=== PATIENT | male | born 1975 | race Caucasian/White ===

== ENCOUNTER 2017-02-09 09:23 | Emergency (ER) | payer OTHER ==
[~2017-02-09] VITALS: Ht 175.3 cm; Wt 119.3 kg
[2017-02-09] MEDS ORDERED: ALPR0.25 PO (09:36)
--- NOTE | 2017-02-09 09:43 | EKG ---
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
[2017-02-09] MEDS ORDERED: ASPIRIN 325 MG TABLET PO ONE (09:45)
[2017-02-09] MEDS ORDERED: LIDO:MAALOX:DONNATAL 1:1:1 15 ML SINGLE DOSE SWSW ONE (09:45)
[2017-02-09 09:49] LABS: BASO # 0.1 x10^3/uL (0.0-0.2); BASO % 1 % (0-3); EOS % 2 % (0-3); HEMATOCRIT 47.8 % (39.0-53.0); HEMOGLOBIN 16.4 g/dL (13.0-17.5); LYMPH # 2.7 x10^3/uL (1.0-4.8); LYMPH % 35 % (24-48); MEAN CORPUSCULAR HEMOGLOBIN 31 pg (25-35); MEAN CORPUSCULAR HGB CONC 34 g/dL (31-37); MEAN CORPUSCULAR VOLUME 91 fL (79-100); MONO % 8 % (0-9); NEUT % 55 % (31-73); PLATELET COUNT 164 x10^3/uL (140-400); RED BLOOD COUNT 5.24 x10^6/uL (4.30-5.70); RED CELL DISTRIBUTION WIDTH 14.3 % (11.5-14.5); WHITE BLOOD COUNT 7.9 x10^3/uL (4.0-11.0)
--- NOTE | 2017-02-09 09:54 | PHYS DOC ---
Past Medical History Past Medical History: Other Additional Past Medical Histor: tick bite causing alpha gal Past Surgical History: Other Additional Past Surgical Histo: left knee arthroscopy Additional Information: 1 ppd Alcohol Use: None Drug Use: Marijuana Adult General Chief Complaint Chief Complaint: CHEST PAIN [facility] HPI Patient is a 41 year old male who presents with 3 days of intermittent right arm pain with numbness in right hand. He went to his PCP to discuss this and then was asked about associated symptoms and then sent here for eval. States he has some minimal central chest pain associated with mild nausea and mild dyspnea. States right arm numbness/pain is independent of chest symptoms. States symptoms are constant with intermittent fluctuation. Chest symptoms occur at rest, worse at night. Arm symptoms worse at work. Denies exertional symptoms. He denies current dyspnea or nausea. Denies cough, leg pain or swelling, abdominal pain, f/c, diaphoresis, orthopnea. Review of Systems Review of Systems Constitutional: Denies fever or chills [] Eyes: Denies change in visual acuity, redness, or eye pain [] HENT: Denies nasal congestion or sore throat [] Respiratory: Denies cough or shortness of breath [] Cardiovascular: No additional information not addressed in HPI [] GI: Denies abdominal pain, nausea, vomiting, bloody stools or diarrhea [] : Denies dysuria or hematuria [] Musculoskeletal: Denies back pain or joint pain [] Integument: Denies rash or skin lesions [] Neurologic: Denies headache, focal weakness or sensory changes [] Endocrine: Denies polyuria or polydipsia [] Current Medications Current Medications Current Medications Medications (Trade) Dose Ordered Sig/Flory Start Time Stop Time Status Last Admin Dose Admin Aspirin (Yisel Aspirin) 325 mg 1X ONCE 02/09/17 09:45 02/09/17 09:46 DC 02/09/17 09:45 325 MG Multi-Ingredient Mouthwash/Gargle (Gi Cocktail Single Dose) 15 ml 1X ONCE 02/09/17 09:45 02/09/17 09:46 DC 02/09/17 09:45 15 ML Allergies Allergies Allergies Coded Allergies Type Severity Reaction Last Updated Verified Horse/Equine Containing Products Allergy Severe ENTERED BY PHARMACY FOR REPORTED PT ALLERGY "ALPHA-GAL" 02/09/17 No pork derived (porcine) Allergy Severe ENTERED BY PHARMACY FOR REPORTED PT ALLERGY "ALPHA-GAL" 02/09/17 No Uncoded Allergies Type Severity Reaction Last Updated Verified mammal meat Allergy Unknown pt has alpha gal from tick bite 02/09/17 Physical Exam Physical Exam Constitutional: Well developed, well nourished, no acute distress, non-toxic appearance. [] HENT: Normocephalic, atraumatic, bilateral external ears normal, oropharynx moist, nose normal. [] Eyes: PERRLA, EOMI. [] Neck: Normal range of motion, supple. [] Cardiovascular:Heart rate regular rhythm [] Lungs & Thorax: Bilateral breath sounds clear to auscultation [] Abdomen: Bowel sounds normal, soft, no tenderness. [] Skin: Warm, dry, no erythema, no rash. [] Back: Normal ROM. [] Extremities: No tenderness, ROM intact, no edema, equal radial pulses. Subjective decreased sensation to light touch in right glove distribution, normal strength at all joints [] Neurologic: Alert and oriented X 3, normal motor function, normal sensory function, no focal deficits noted. [] Psychologic: Affect normal, judgement normal, mood normal. [] Current Patient Data Vital Signs Vital Signs Date Time Temp Pulse Resp B/P Pulse Ox O2 Delivery O2 Flow Rate FiO2 02/09/17 10:34 78 18 152/71 98 Room Air 02/09/17 09:28 98.3 98.3 Lab Values Laboratory Tests Test 02/09/17 09:25 White Blood Count 7.9x10^3/uL (4.0-11.0) Red Blood Count 5.24x10^6/uL (4.30-5.70) Hemoglobin 16.4g/dL (13.0-17.5) Hematocrit 47.8% (39.0-53.0) Mean Corpuscular Volume 91fL (79-100) Mean Corpuscular Hemoglobin 31pg (25-35) Mean Corpuscular Hemoglobin Concent 34g/dL (31-37) Red Cell Distribution Width 14.3% (11.5-14.5) Platelet Count 164x10^3/uL (140-400) Neutrophils (%) (Auto) 55% (31-73) Lymphocytes (%) (Auto) 35% (24-48) Monocytes (%) (Auto) 8% (0-9) Eosinophils (%) (Auto) 2% (0-3) Basophils (%) (Auto) 1% (0-3) Neutrophils # (Auto) 4.3x10^3uL (1.8-7.7) Lymphocytes # (Auto) 2.7x10^3/uL (1.0-4.8) Monocytes # (Auto) 0.6x10^3/uL (0.0-1.1) Eosinophils # (Auto) 0.2x10^3/uL (0.0-0.7) Basophils # (Auto) 0.1x10^3/uL (0.0-0.2) Sodium Level 143mmol/L (136-145) Potassium Level 4.0mmol/L (3.5-5.1) Chloride Level 106mmol/L (98-107) Carbon Dioxide Level 29mmol/L (21-32) Anion Gap 8 (6-14) Blood Urea Nitrogen 11mg/dL (8-26) Creatinine 0.9mg/dL (0.7-1.3) Estimated GFR (Cockcroft-Gault) 93.9 Glucose Level 112mg/dL (70-99) H Calcium Level 9.5mg/dL (8.5-10.1) Troponin I Quantitative < 0.017ng/mL (0.000-0.055) Laboratory Tests 02/09/17 09:25 Laboratory Tests 02/09/17 09:25 EKG EKG EKG as interpreted by me as normal sinus rhythm, rate 85, no ST-T changes, normal intervals, no ectopy Radiology/Procedures Radiology/Procedures Chest xray as interpreted by me with no acute cardiopulmonary disease process Course & Med Decision Making Course & Med Decision Making Pertinent Labs and Imaging studies reviewed. (See chart for details) Workup is unremarkable. Will start on famotidine for possible GI source of pain. Discussed arm symptoms concerning for radicular symptoms. Symptomatic care discussed. Return precautions given. He understands and agrees with plan. Franca Disclaimer Franca Disclaimer This electronic medical record was generated, in whole or in part, using a voice recognition dictation system. Departure Departure Impression: Primary Impression: Chest pain Additional Impression: Numbness of right hand Disposition: 01 HOME, SELF-CARE Condition: STABLE Patient Instructions: Chest Pain (Nonspecific), [id number] Additional Instructions: Take famotidine for possible acid reflux. Follow-up with your primary care doctor within one week. Return for any concerns. Scripts Famotidine 20 Mg [id number] Mg PO BID #30 TAB Prov:Danny CHEN MD 02/09/17 Problem Qualifiers Primary Impression: Chest pain Chest pain type: unspecified Qualified Code: R07.9 - Chest pain, unspecified Danny CHEN MD Feb 09, 2017 09:54
[2017-02-09 10:00] LABS: CALCIUM 9.5 mg/dL (8.5-10.1); CREATININE 0.9 mg/dL (0.7-1.3); GFR 93.9
--- NOTE | 2017-02-09 10:03 | RAD ---
EXAM: Chest, 2 views. HISTORY: Chest pain. COMPARISON: None. FINDINGS: Frontal and lateral views of the chest are obtained. There is no infiltrate, effusion or pneumothorax. The heart is normal in size. IMPRESSION: No acute pulmonary finding.
[2017-02-09 10:34] VITALS: BP 152/71
[2017-02-09] MEDS ORDERED: FAMO20TA5 PO (10:36)
== END 2017-02-09 10:51 | disposition home or self-care (01) ==
LOC: ER 09:23
DX: R07.89 Other chest pain (principal); R20.0 Anesthesia of skin; R11.0 Nausea; R06.00 Dyspnea, unspecified; F12.10 Cannabis abuse, uncomplicated; F17.200 Nicotine dependence, unspecified, uncomplicated
CPT/HCPCS: 36415; 71020; 80048; 84484; 85027; 93005; 99285-25

== ENCOUNTER 2020-10-25 18:10 | Emergency (ER) | payer OTHER ==
[~2020-10-25] VITALS: Ht 175.3 cm; Wt 129.0 kg
[~2020-10-25 18:10] MED LIST: ALPR0.25 PO; AMOX1TAB61 PO; FAMO20TA5 PO; HYDR-3164 PO
--- NOTE | 2020-10-25 18:14 | PHYS DOC ---
Past Medical History Past Medical History: Anxiety, Hypertension, Other Additional Past Medical Histor: tick bite causing alpha gal Past Surgical History: Other Additional Past Surgical Histo: left knee arthroscopy, hernia Smoking Status: Current Every Day Smoker Alcohol Use: Occasionally Drug Use: Marijuana General Adult EDM: Chief Complaint: CHEST PAIN HPI: HPI: Patient is a 44 year old male presenting for chest pain. Patient reports being seen at [facility] greater than 1 week ago and given high blood pressure readings in outpatient setting was started on 20 mg lisinopril daily. He has been taking this faithfully but reports approximately 1 week ago without any known inciting event and/or trauma, patient started developing substernal chest pain which radiated into his left shoulder. These episodes occur daily and last hours at a time. He has been taking Xanax which is prescribed for his anxiety which seem to help, nothing known makes worse. Patient reports following up in outpatient setting with his primary care provider via Zoom. He discussed his symptoms with provider today who is concerned and recommended patient come to our facility for evaluation. He uses tobacco, has no prior provocative cardiac work-up, does have family history of MIs less than 50 years old. Review of Systems: Review of Systems: Fourteen body systems of review of systems have been reviewed. See HPI for pertinent positives and negative responses, other ely all other systems are negative, non-pertinent or non-contributory Heart Score: HEART Score for Chest Pain: HEART Score for Chest Pain Response (Comments) Value History Slighlty/Non-Suspicious 0 ECG Normal 0 Age < 45 0 Risk Factors >3 Risk Factors or Hx CAD 2 Troponin < Normal Limit 0 Total 2 Risk Factors: Risk Factors: DM, Current or recent (<one month) smoker, HTN, HLP, family history of CAD, obesity. Risk Scores: Score 0 - 3: 2.5% MACE over next 6 weeks - Discharge Home Score 4 - 6: 20.3% MACE over next 6 weeks - Admit for Clinical Observation Score 7 - 10: 72.7% MACE over next 6 weeks - Early Invasive Strategies Allergies: Allergies: Allergies Coded Allergies Type Severity Reaction Last Updated Verified Horse/Equine Containing Products Allergy Severe ENTERED BY PHARMACY FOR REPORTED PT ALLERGY "ALPHA-GAL" 02/09/17 No pork derived (porcine) Allergy Severe ENTERED BY PHARMACY FOR REPORTED PT ALLERGY "ALPHA-GAL" 02/09/17 No Uncoded Allergies Type Severity Reaction Last Updated Verified mammal meat Allergy Unknown pt has alpha gal from tick bite 02/09/17 Physical Exam: PE: Constitutional: Well developed, well nourished, no acute distress, non-toxic appearance. HENT: Normocephalic, atraumatic, bilateral external ears normal, oropharynx moist, no oral exudates, nose normal. Eyes: PERRLA, EOMI, conjunctiva normal, no discharge. Neck: Normal range of motion, no tenderness, supple, no stridor. Cardiovascular: Heart rate regular, sinus rhythm, no murmurs rubs or gallops Lungs & Thorax: Bilateral breath sounds clear to auscultation Abdomen: Bowel sounds normal, soft, no tenderness, no masses, no pulsatile masses. Nonsurgical abdomen, no peritoneal signs Skin: Warm, dry, no erythema, no rash. Back: No tenderness, no CVA tenderness. Extremities: No tenderness, no cyanosis, no clubbing, ROM intact, no edema. Neurologic: Alert and oriented X 3, grossly normal motor & sensory function, no focal deficits noted. Psychologic: Affect normal, judgement normal, mood normal. Current Patient Data: Labs: Laboratory Tests Test 10/25/20 18:25 White Blood Count 8.0 x10^3/uL Red Blood Count 4.88 x10^6/uL Hemoglobin 15.2 g/dL Hematocrit 44.5 % Mean Corpuscular Volume 91 fL Mean Corpuscular Hemoglobin 31 pg Mean Corpuscular Hemoglobin Concent 34 g/dL Red Cell Distribution Width 14.1 % Platelet Count 175 x10^3/uL Neutrophils (%) (Auto) 54 % Lymphocytes (%) (Auto) 35 % Monocytes (%) (Auto) 9 % Eosinophils (%) (Auto) 2 % Basophils (%) (Auto) 1 % Neutrophils # (Auto) 4.3 x10^3/uL Lymphocytes # (Auto) 2.8 x10^3/uL Monocytes # (Auto) 0.7 x10^3/uL Eosinophils # (Auto) 0.1 x10^3/uL Basophils # (Auto) 0.1 x10^3/uL Sodium Level 140 mmol/L Potassium Level 4.4 mmol/L Chloride Level 103 mmol/L Carbon Dioxide Level 27 mmol/L Anion Gap 10 Blood Urea Nitrogen 8 mg/dL Creatinine 0.8 mg/dL Estimated GFR (Cockcroft-Gault) 106.0 BUN/Creatinine Ratio 10 Glucose Level 96 mg/dL Calcium Level 10.0 mg/dL Total Bilirubin 0.3 mg/dL Aspartate Amino Transf (AST/SGOT) 20 U/L Alanine Aminotransferase (ALT/SGPT) 45 U/L Alkaline Phosphatase 74 U/L Troponin I Quantitative < 0.017 ng/mL Total Protein 6.9 g/dL Albumin 4.2 g/dL Albumin/Globulin Ratio 1.6 Current Medications Medications (Trade) Dose Ordered Sig/Flory Route PRN Reason Start Time Stop Time Status Last Admin Dose Admin Aspirin (Aspirin Chewable) 324 mg 1X ONCE PO 10/25/20 18:30 10/25/20 18:31 DC 10/25/20 18:39 Vital Signs: Vital Signs Date Time Temp Pulse Resp B/P (MAP) Pulse Ox O2 Delivery O2 Flow Rate FiO2 10/25/20 18:51 76 16 156/100 (118) 99 Room Air 10/25/20 18:23 98.1 88 16 155/90 (111) 98 Room Air 98.1 EKG: EKG: EKG ordered and interpreted by myself at 1820 hrs. as sinus rhythm at 86 bpm, unremarkable intervals, no axis deviation, no acute ischemic findings, no STEMI Radiology/Procedures: Radiology/Procedures: EXAM: AP View of the chest DATE: 10/25/2020 6:42 PM INDICATION: Reason: CHEST PAIN / Spl. Instructions: / History: COMPARISON: No Prior FINDINGS: The heart is not enlarged. Mediastinal and hilar contours are normal. No focal parenchymal airspace opacity. No pleural effusion or pneumothorax. IMPRESSION: 1. No radiographic evidence for acute cardiopulmonary process. Electronically signed by: Donald Sanchez MD (10/25/2020 7:35 PM) [facility] Course & Med Decision Making: Course & Med Decision Making This patient presents with chest pain that is very unlikely angina or acute coronary syndrome. The emergency department evaluation has not identified any cause for suspicion that this chest pain has a cardiac etiology. Based on their history, EKG (which showed no evidence of ischemia or infarction) and imaging, in addition to the patient's physical exam, I see no evidence at this time for a malignant etiology for the patient's chest pain. There is no acute evidence for pulmonary embolus, acute myocardial infarction, pneumothorax, Boerhaeve syndrome, cardiac tamponade, thoracic artery dissection, or any other emergent cardiac, pulmonary or aortic pathology. Given the low pre-test probability for cardiac etiology of chest pain and the absence of any sign of ischemia or infarction, discharge for outpatient follow-up and further evaluation is reasonable. I feel that patient's underlying anxiety is contributing to his atypical chest pain I have explained to the patient that even though a cardiac problem is very unlikely, follow-up and further testing is required to reduce further the already small uncertainty that exists. Other life-threatening diagnoses have been considered. The patient understands the need to return immediately if their symptoms worsen or they develop any new symptoms, and not to engage in any significant exertional activity until follow-up is obtained. Dragon Disclaimer: Dragon Disclaimer: This electronic medical record was generated, in whole or in part, using a voice recognition dictation system. Departure Departure Impression: Primary Impression: Atypical chest pain Disposition: 01 DC HOME SELF CARE/HOMELESS Condition: STABLE Referrals: UNKNOWN PCP NAME (PCP) JOANNE NAYAK MD Patient Instructions: Chest Pain (Nonspecific) Additional Instructions: As discussed prior to ER departure, please call your primary care physician first thing tomorrow morning to discuss this evening's visit You would benefit from having outpatient provocative cardiac testing such as stress test performed. I would also consider discussing the need for outpatient cardiology referral with your primary care physician. Dr. Nayak's information is attached As discussed, your comprehensive work-up performed in the ER today did not show any emergent and/or surgical findings. There is no indication for further work- up and/or hospital admission at this time. With that said, this might be an acute presentation of more concerning pathology and so, extremely close outpatient follow-up for reexamination is advised If any concerning signs or symptoms present prior to outpatient follow-up please do not hesitate to come back for repeat evaluation Is a pleasure to take care of you and I wish you the best going forward DESTINY CARRASQUILLO DO Oct 25, 2020 18:14
[2020-10-25 18:38] LABS: BASO # 0.1 x10^3/uL (0.0-0.2); BASO % 1 % (0-3); EOS # 0.1 x10^3/uL (0.0-0.7); EOS % 2 % (0-3); HEMATOCRIT 44.5 % (39.0-53.0); HEMOGLOBIN 15.2 g/dL (13.0-17.5); LYMPH # 2.8 x10^3/uL (1.0-4.8); LYMPH % 35 % (24-48); MEAN CORPUSCULAR HEMOGLOBIN 31 pg (25-35); MEAN CORPUSCULAR HGB CONC 34 g/dL (31-37); MEAN CORPUSCULAR VOLUME 91 fL (79-100); MONO # 0.7 x10^3/uL (0.0-1.1); MONO % 9 % (0-9); NEUT # 4.3 x10^3/uL (1.8-7.7); NEUT % 54 % (31-73); PLATELET COUNT 175 x10^3/uL (140-400); RED BLOOD COUNT 4.88 x10^6/uL (4.30-5.70); RED CELL DISTRIBUTION WIDTH 14.1 % (11.5-14.5)
[2020-10-25] MEDS: ASPIRIN CHEWABLE 81 MG TABLET. PO ONE (18:39)
[2020-10-25 18:51] LABS: CREATININE 0.8 mg/dL (0.7-1.3); POTASSIUM 4.4 mmol/L (3.5-5.1)
[2020-10-25 18:57] LABS: ALBUMIN 4.2 g/dL (3.4-5.0); ALBUMIN/GLOBULIN RATIO 1.6 (1.0-1.7); TOTAL BILIRUBIN 0.3 mg/dL (0.2-1.0); TOTAL PROTEIN 6.9 g/dL (6.4-8.2)
--- NOTE | 2020-10-25 19:37 | RAD ---
EXAM: AP View of the chest DATE: 10/25/2020 6:42 PM INDICATION: Reason: CHEST PAIN / Spl. Instructions: / History: COMPARISON: No Prior FINDINGS: The heart is not enlarged. Mediastinal and hilar contours are normal. No focal parenchymal airspace opacity. No pleural effusion or pneumothorax. IMPRESSION: 1. No radiographic evidence for acute cardiopulmonary process. Electronically signed by: Donald Sanchez MD (10/25/2020 7:35 PM) [place]
[2020-10-25 19:51] VITALS: BP 161/83
--- NOTE | 2020-10-26 13:33 | EKG ---
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
== END 2020-10-25 20:33 | disposition home or self-care (01) ==
LOC: ER 18:10
DX: R07.89 Other chest pain (principal); F41.9 Anxiety disorder, unspecified; I10 Essential (primary) hypertension; F17.200 Nicotine dependence, unspecified, uncomplicated; F12.90 Cannabis use, unspecified, uncomplicated; Z98.890 Other specified postprocedural states; Z91.018 Allergy to other foods
CPT/HCPCS: 36415; 71045; 80053; 84484; 85025; 93005; 99285

== ENCOUNTER 2022-03-12 03:13 | Emergency (ER) | payer OTHER ==
[~2022-03-12] VITALS: Ht 175.3 cm; Wt 126.0 kg
[2022-03-12 03:56] LABS: BASO # 0.1 x10^3/uL (0.0-0.2); BASO % 1 % (0-3); EOS # 0.2 x10^3/uL (0.0-0.7); EOS % 3 % (0-3); HEMATOCRIT 44.3 % (39.0-53.0); HEMOGLOBIN 14.9 g/dL (13.0-17.5); LYMPH # 2.9 x10^3/uL (1.0-4.8); LYMPH % 37 % (24-48); MEAN CORPUSCULAR HEMOGLOBIN 31 pg (25-35); MEAN CORPUSCULAR HGB CONC 34 g/dL (31-37); MEAN CORPUSCULAR VOLUME 92 fL (79-100); MONO # 0.6 x10^3/uL (0.0-1.1); MONO % 8 % (0-9); NEUT # 4.1 x10^3/uL (1.8-7.7); NEUT % 52 % (31-73); PLATELET COUNT 156 x10^3/uL (140-400); RED BLOOD COUNT 4.84 x10^6/uL (4.30-5.70); RED CELL DISTRIBUTION WIDTH 13.8 % (11.5-14.5); WHITE BLOOD COUNT 7.9 x10^3/uL (4.0-11.0)
[2022-03-12 04:06] LABS: CALCIUM 8.7 mg/dL (8.5-10.1); CREATININE 1.2 mg/dL (0.7-1.3); GFR 65.8; POTASSIUM 3.8 mmol/L (3.5-5.1)
[2022-03-12 04:12] LABS: ALBUMIN 3.5 g/dL (3.4-5.0); ALBUMIN/GLOBULIN RATIO 1.1 (1.0-1.7); TOTAL BILIRUBIN 0.2 mg/dL (0.2-1.0); TOTAL PROTEIN 6.8 g/dL (6.4-8.2)
[2022-03-12 04:29] VITALS: BP 161/80
[2022-03-12] MEDS ORDERED: KETOROLAC 15 MG/ML VIAL. IVP ONE (04:30)
[2022-03-12] MEDS ORDERED: IV NORMAL SALINE 1000ML BAG 1,000 ML IV ONE (04:30)
--- NOTE | 2022-03-12 04:55 | RAD ---
Study: CT abdomen/pelvis without intravenous contrast Indication: Right-sided flank pain. Comparison: 07/26/2018 Technique: Helical CT imaging performed of the abdomen and pelvis without the use of intravenous cont rast. Sagittal and coronal reformats were obtained. One or more of the following individualized dose reduction techniques were utilized for this examinat ion: 1. Automated exposure control 2. Adjustment of the mA and/or kV according to patient size 3. Use of iterative reconstruction technique. Findings: Inherently limited evaluation without intravenous contrast. Unremarkable visualized lungs and mediastinal contents. Diffuse hepatic steatosis. Within normal limits gallbladder, biliary tree, pancreas, spleen and adren al glands. Mild hydroureter on the right and mild pelviectasis in the setting of a 5 mm stone approac cayetano the ureterovesicular junction. Mild inflammation around the right ureter. Possible punctate inte rpolar stone on the left, coronal image 68. Unremarkable bladder. No significant prostate enlargement . Colonic diverticulosis without diverticulitis. Mild volume colonic stool burden. Normal appendix. No pathologic dilatation of small bowel. Unremarkable stomach. Minimal calcific atherosclerosis. No significant lymph node enlargement. Sequential right parasagittal thoracic vertebral body osteophytes as can be seen with diffuse idiopat hic skeletal hyperostosis. Mild arthrosis at the hips. Impression: 1. Mild right-sided hydroureter and minimal pelviectasis in the setting of a 5 mm stone approaching the ureterovesicular junction. 2. Potential punctate nonobstructing interpolar stone on the left. 3. Diffuse hepatic steatosis. 4. Colonic diverticulosis. Mild constipation. Electronically signed by: SAMANTHA STEVE MD (03/12/2022 4:52 AM) [facility]
--- NOTE | 2022-03-12 04:59 | PHYS DOC ---
Past Medical History Past Medical History: Anxiety, Hypertension, Other Additional Past Medical Histor: tick bite causing alpha gal Past Surgical History: Other Additional Past Surgical Histo: left knee arthroscopy, hernia Smoking Status: Current Every Day Smoker Alcohol Use: Occasionally Drug Use: Marijuana General Adult EDM: Chief Complaint: FLANK PAIN HPI: HPI: Patient is a 46 year old male presents to the ER with right flank pain that started this morning at 3 AM. Patient states that he has had similar pain in the past 7 years ago when he had a kidney stone. Reports nausea no vomiting no hematuria no dysuria. Review of Systems: Review of Systems: Constitutional: Denies fever or chills. [] Eyes: Denies change in visual acuity. [] HENT: Denies nasal congestion or sore throat. [] Respiratory: Denies cough or shortness of breath. [] Cardiovascular: Denies chest pain or edema. [] GI: Denies abdominal pain, nausea, vomiting, bloody stools or diarrhea. [] : Right-sided flank pain. Denies dysuria. [] Musculoskeletal: Denies back pain or joint pain. [] Integument: Denies rash. [] Neurologic: Denies headache, focal weakness or sensory changes. [] Endocrine: Denies polyuria or polydipsia. [] Lymphatic: Denies swollen glands. [] Psychiatric: Denies depression or anxiety. [] Heart Score: C/O Chest Pain: No Risk Factors: Risk Factors: DM, Current or recent (<one month) smoker, HTN, HLP, family history of CAD, obesity. Risk Scores: Score 0 - 3: 2.5% MACE over next 6 weeks - Discharge Home Score 4 - 6: 20.3% MACE over next 6 weeks - Admit for Clinical Observation Score 7 - 10: 72.7% MACE over next 6 weeks - Early Invasive Strategies Current Medications: Current Medications Medications (Trade) Dose Ordered Sig/Flory Start Time Stop Time Status Last Admin Dose Admin Ketorolac Tromethamine (Toradol 15mg Vial) 15 mg 1X ONCE 03/12/22 04:30 03/12/22 04:31 DC 03/12/22 04:13 15 MG Sodium Chloride 1,000 ml @ 1,000 mls/hr 1X ONCE 03/12/22 04:30 03/12/22 05:29 03/12/22 04:14 1,000 MLS/HR Allergies: Allergies: Allergies Coded Allergies Type Severity Reaction Last Updated Verified Horse/Equine Containing Products Allergy Severe ENTERED BY PHARMACY FOR REPORTED PT ALLERGY "ALPHA-GAL" 03/12/22 Yes pork derived (porcine) Allergy Severe ENTERED BY PHARMACY FOR REPORTED PT ALLERGY "ALPHA-GAL" 03/12/22 Yes Uncoded Allergies Type Severity Reaction Last Updated Verified mammal meat Allergy Severe pt has alpha gal from tick bite 03/12/22 Physical Exam: PE: Constitutional: Well developed, well nourished, no acute distress, non-toxic appearance. [] HENT: Normocephalic, atraumatic, bilateral external ears normal, oropharynx moist, no oral exudates, nose normal. [] Eyes: PERRLA, EOMI, conjunctiva normal, no discharge. [] Neck: Normal range of motion, no tenderness, supple, no stridor. [] Cardiovascular:Heart rate regular rhythm, no murmur [] Lungs & Thorax: Bilateral breath sounds clear to auscultation [] Abdomen: Bowel sounds normal, soft, no tenderness, no masses, no pulsatile masses. [] Skin: Warm, dry, no erythema, no rash. [] Back: No tenderness, right-sided CVA tenderness. [] Extremities: No tenderness, no cyanosis, no clubbing, ROM intact, no edema. [] Neurologic: Alert and oriented X 3, normal motor function, normal sensory function, no focal deficits noted. [] Psychologic: Affect normal, judgement normal, mood normal. [] Current Patient Data: Labs: Laboratory Tests Test 03/12/22 03:45 White Blood Count 7.9 x10^3/uL (4.0-11.0) Red Blood Count 4.84 x10^6/uL (4.30-5.70) Hemoglobin 14.9 g/dL (13.0-17.5) Hematocrit 44.3 % (39.0-53.0) Mean Corpuscular Volume 92 fL (79-100) Mean Corpuscular Hemoglobin 31 pg (25-35) Mean Corpuscular Hemoglobin Concent 34 g/dL (31-37) Red Cell Distribution Width 13.8 % (11.5-14.5) Platelet Count 156 x10^3/uL (140-400) Neutrophils (%) (Auto) 52 % (31-73) Lymphocytes (%) (Auto) 37 % (24-48) Monocytes (%) (Auto) 8 % (0-9) Eosinophils (%) (Auto) 3 % (0-3) Basophils (%) (Auto) 1 % (0-3) Neutrophils # (Auto) 4.1 x10^3/uL (1.8-7.7) Lymphocytes # (Auto) 2.9 x10^3/uL (1.0-4.8) Monocytes # (Auto) 0.6 x10^3/uL (0.0-1.1) Eosinophils # (Auto) 0.2 x10^3/uL (0.0-0.7) Basophils # (Auto) 0.1 x10^3/uL (0.0-0.2) Sodium Level 140 mmol/L (136-145) Potassium Level 3.8 mmol/L (3.5-5.1) Chloride Level 105 mmol/L (98-107) Carbon Dioxide Level 28 mmol/L (21-32) Anion Gap 7 (6-14) Blood Urea Nitrogen 12 mg/dL (8-26) Creatinine 1.2 mg/dL (0.7-1.3) Estimated GFR (Cockcroft-Gault) 65.8 BUN/Creatinine Ratio 10 (6-20) Glucose Level 135 mg/dL (70-99) H Calcium Level 8.7 mg/dL (8.5-10.1) Total Bilirubin 0.2 mg/dL (0.2-1.0) Aspartate Amino Transferase (AST) 22 U/L (15-37) Alanine Aminotransferase (ALT) 41 U/L (16-63) Alkaline Phosphatase 70 U/L (46-116) Total Protein 6.8 g/dL (6.4-8.2) Albumin 3.5 g/dL (3.4-5.0) Albumin/Globulin Ratio 1.1 (1.0-1.7) Lipase 122 U/L (73-393) Laboratory Tests 03/12/22 03:45 Laboratory Tests 03/12/22 03:45 Vital Signs: Vital Signs Date Time Temp Pulse Resp B/P (MAP) Pulse Ox O2 Delivery O2 Flow Rate FiO2 03/12/22 03:32 98.1 73 18 158/99 (118) 97 Room Air 98.1 EKG: EKG: [] Radiology/Procedures: Radiology/Procedures: []Study: CT abdomen/pelvis without intravenous contrast Indication: Right-sided flank pain. Comparison: 07/26/2018 Technique: Helical CT imaging performed of the abdomen and pelvis without the use of intravenous contrast. Sagittal and coronal reformats were obtained. One or more of the following individualized dose reduction techniques were utilized for this examination: 1. Automated exposure control 2. Adjustment of the mA and/or kV according to patient size 3. Use of iterative reconstruction technique. Findings: Inherently limited evaluation without intravenous contrast. Unremarkable visualized lungs and mediastinal contents. Diffuse hepatic steatosis. Within normal limits gallbladder, biliary tree, pancreas, spleen and adrenal glands. Mild hydroureter on the right and mild pelviectasis in the setting of a 5 mm stone approaching the ureterovesicular junction. Mild inflammation around the right ureter. Possible punctate interpolar stone on the left, coronal image 68. Unremarkable bladder. No significant prostate enlargement. Colonic diverticulosis without diverticulitis. Mild volume colonic stool burden. Normal appendix. No pathologic dilatation of small bowel. Unremarkable stomach. Minimal calcific atherosclerosis. No significant lymph node enlargement. Sequential right parasagittal thoracic vertebral body osteophytes as can be seen with diffuse idiopathic skeletal hyperostosis. Mild arthrosis at the hips. Impression: 1. Mild right-sided hydroureter and minimal pelviectasis in the setting of a 5 mm stone approaching the ureterovesicular junction. 2. Potential punctate nonobstructing interpolar stone on the left. 3. Diffuse hepatic steatosis. 4. Colonic diverticulosis. Mild constipation. Course & Med Decision Making: Course & Med Decision Making Pertinent Labs and Imaging studies reviewed. (See chart for details) [] Patient was reevaluated after pain medication and patient currently not in d istress return precautions were discussed. Dragon Disclaimer: Dragon Disclaimer: This electronic medical record was generated, in whole or in part, using a voice recognition dictation system. Departure Departure Impression: Primary Impression: Kidney stone Disposition: HOME / SELF CARE / HOMELESS Condition: STABLE Referrals: UNKNOWN PCP NAME (PCP) HUDSON LEAL MD Patient Instructions: Kidney Stones, [id number]-[id number] Scripts Ibuprofen (IBUPROFEN) 600 Mg Tablet 600 MG PO PRN Q6HRS PRN for PAIN, #20 TAB take with food or milk Prov: GRAY EUCEDA DO 03/12/22 Oxycodone/Apap 5-325 (PERCOCET 5-325 MG TABLET ) 1 Each Tablet 1 TAB PO PRN Q6HRS PRN for PAIN, #12 TAB 0 Refills Prov: GRAY EUCEDA DO 03/12/22 GRAY EUCEDA DO Mar 12, 2022 04:59
[2022-03-12] MEDS ORDERED: IBUP-1007 PO (05:13)
[2022-03-12] MEDS ORDERED: OXYC1TAB15 PO (05:13)
[2022-03-12 05:31] LABS: BACTERIA,URINE 0 /HPF (0-FEW); WBC,URINE RARE /HPF (0-4)
[2022-03-12] MEDS ORDERED: oxyCODONE/APAP 5/325 1 TAB TABLET PO ONE (06:00)
== END 2022-03-12 05:32 | disposition home or self-care (01) ==
LOC: ER 03:13
DX: N20.0 Calculus of kidney (principal); K57.30 Diverticulosis of large intestine without perforation or abscess without bleeding; I10 Essential (primary) hypertension; F17.200 Nicotine dependence, unspecified, uncomplicated; Z88.8 Allergy status to other drugs, medicaments and biological substances; Z91.018 Allergy to other foods
CPT/HCPCS: 36415; 74176; 80053; 81001; 83690; 85025; 96361; 96374; 99284; J1885; J7030; 96375